=== PATIENT | male | born 1965 | race Caucasian/White ===

== ENCOUNTER 2016-03-22 09:00 | Day surgery (SDC) | payer OTHER ==
[~2016-03-22] VITALS: Ht 177.8 cm; Wt 88.5 kg
[~2016-03-22 09:00] MED LIST: OMEP20TA24 PO; SILD20TA14 PO; Sodium Chloride LOK Flush 10 mL Syringe IV PRN; fentaNYL-PF 50 mCg/mL 2 mL Inj IVPUSH PRN
[2016-03-22 09:16] VITALS: BP 141/92; PULSE 59; RESP 16; O2SAT 97
[2016-03-22] MEDS: 0.9% Sodium Chloride 1,000 ML IV SCH ×2 (09:36→10:05)
[2016-03-22 10:10] VITALS: BP 131/74; PULSE 60; RESP 14; O2SAT 96
[2016-03-22 10:20] VITALS: BP 115/89; PULSE 67; RESP 14; O2SAT 98
--- NOTE | 2016-03-22 21:20 | ENDO ---
[address] [address] ENDOSCOPY PROCEDURE PATIENT: SEAN MCMAHON : 1965 MR#: [id number] ADMIT: 03/22/2016 JOB ID: [id number] DATE: 03/22/2016 PRIMARY CARE PROVIDERS: Azalia Wright MD PROCEDURE: Colonoscopy. INDICATIONS: A 50-year-old male reports for colon cancer screening. EQUIPMENT: PCF H 180 AL. SEDATION: 5 mg Versed and 100 mcg fentanyl. COMPLICATIONS: None identified. BOWEL PREPARATION: Fair, adequate exam. PROCEDURE INFORMATION: After the risks and benefits were explained, written and verbal informed consent was obtained. The patient was brought into the endoscopy suite and placed into the left lateral decubitus position. Sedation was achieved as above. A digital rectal examination accomplished. No significant pathology appreciated apart from some mild internal hemorrhoids. The scope was introduced into the rectum and advanced under direct visualization to the level of the cecum, as identified by the appendiceal orifice and ileocecal valve. The scope was slowly withdrawn to carefully examine the mucosa for any defects or lesions. Multiple direct views were made through the dentate line for exclusion of pathology. The colon was decompressed. The scope removed from the patient who tolerated the procedure well. FINDINGS: No significant polyps, mass lesions, or inflammatory features identified throughout. ENDOSCOPIC DIAGNOSES: 1. Mild internal hemorrhoids. 2. Otherwise visually unremarkable colonoscopy to cecum. RECOMMENDATIONS: Repeat colonoscopy 10 years' time, sooner should symptoms warrant an earlier exam.
== END 2016-03-22 23:59 | disposition home or self-care (01) ==
LOC: END 09:00
PROVIDERS: ATTEND Internal Medicine Gastroenterology
DX: Z12.11 Encounter for screening for malignant neoplasm of colon (principal); K64.8 Other hemorrhoids; K21.9 Gastro-esophageal reflux disease without esophagitis; Z79.899 Other long term (current) drug therapy